=== PATIENT | male | born 1990 | race Caucasian/White ===

== ENCOUNTER 2016-07-23 01:21 | Emergency (ER) | payer OTHER ==
[~2016-07-23] VITALS: Ht 177.8 cm; Wt 74.8 kg
[2016-07-23 03:08] VITALS: BP 128/78
== END 2016-07-23 03:14 | disposition home or self-care (01) ==
LOC: ER 01:21
DX: G44.209 Tension-type headache, unspecified, not intractable (principal); F17.210 Nicotine dependence, cigarettes, uncomplicated

== ENCOUNTER 2019-09-06 21:13 | Emergency (ER) | payer OTHER ==
[~2019-09-06] VITALS: Ht 177.8 cm; Wt 86.2 kg
[2019-09-06 22:00] LABS: HEMATOCRIT 42.7 % (42.0-52.0); MCH 27.5 pg (26.0-34.0); MCHC 32.8 g/dL (28.0-37.0); MCV 83.9 fL (80.0-100.0); PLATELET COUNT 220 thou/uL (150-400); RBC 5.09 mil/uL (4.50-6.00); RDW 13.9 % (10.5-14.5); WBC 5.6 thou/uL (4.0-11.0)
[2019-09-06 22:10] LABS: CALCIUM 9.4 mg/dL (8.5-10.1); POTASSIUM 3.4 mmol/L (3.5-5.1)
[2019-09-06 22:16] LABS: ALBUMIN 4.2 g/dL (3.4-5.0); DIRECT BILIRUBIN 0.1 mg/dL (<0.1-0.2); TOTAL BILIRUBIN 0.7 mg/dL (<0.1-1.0)
[2019-09-06 22:19] LABS: ABSOLUTE NEUTROPHILS 3.2 thou/uL (1.4-8.2); PLATELET ESTIMATE NORMAL
[2019-09-07] MEDS ORDERED: CIPROFLOXACIN500 M1 PO (00:28)
[2019-09-07] MEDS ORDERED: FLAGYL500 M1 PO (00:28)
[2019-09-07] MEDS ORDERED: ZOFRAN ODT4 MG PO (00:28)
[2019-09-07 00:44] VITALS: BP 116/75
== END 2019-09-07 00:40 | disposition home or self-care (01) ==
LOC: ER 21:13
PROVIDERS: Emergency Medicine Emergency Medical Services
DX: K52.9 Noninfective gastroenteritis and colitis, unspecified (principal); K62.5 Hemorrhage of anus and rectum; F17.210 Nicotine dependence, cigarettes, uncomplicated

== ENCOUNTER 2019-09-07 23:21 | Inpatient (IN) | payer OTHER ==
[~2019-09-07] VITALS: Ht 177.8 cm; Wt 84.8 kg
[~2019-09-07 23:21] MED LIST: CIPROFLOXACIN500 M1 PO; FLAGYL500 M1 PO; ZOFRAN ODT4 MG PO
[2019-09-07 23:22] VITALS: BP 143/79
[2019-09-07 23:52] LABS: HEMATOCRIT 40.9 % (42.0-52.0); HEMOGLOBIN 13.3 gm/dL (14.0-18.0); MCH 27.1 pg (26.0-34.0); MCHC 32.5 g/dL (28.0-37.0); MCV 83.3 fL (80.0-100.0); PLATELET COUNT 210 thou/uL (150-400); RBC 4.91 mil/uL (4.50-6.00); RDW 13.9 % (10.5-14.5); WBC 5.4 thou/uL (4.0-11.0)
[2019-09-08] VITALS (7 sets, daily range): BP systolic 114–135; BP diastolic 60–87
[2019-09-08 00:01] LABS: CALCIUM 8.7 mg/dL (8.5-10.1); CREATININE 0.9 mg/dL (0.7-1.3); POTASSIUM 3.2 mmol/L (3.5-5.1)
[2019-09-08 00:13] LABS: TOTAL BILIRUBIN 0.8 mg/dL (<0.1-1.0); TOTAL PROTEIN 7.6 g/dL (6.4-8.2)
[2019-09-08 00:15] LABS: URINE BILIRUBIN NEGATIVE (Negative); URINE BLOOD 1+ (Negative); URINE CLARITY CLEAR; URINE COLOR YELLOW; URINE GLUCOSE-RANDOM* NEGATIVE (Negative); URINE KETONES 2+ (Negative); URINE LEUKOCYTES-REFLEX TRACE (Negative); URINE NITRITE-REFLEX NEGATIVE (Negative); URINE PROTEIN (DIPSTICK) TRACE (Negative); URINE SPECIFIC GRAVITY >= 1.030 (1.005-1.035); URINE UROBILINOGEN 0.2 E.U./dl (0.2-1.0)
[2019-09-08 00:21] LABS: BACTERIA-REFLEX None Seen /HPF (None Seen); CASTS None Seen /LPF (None Seen); CRYSTALS None Seen /LPF (None Seen); MUCUS 4-6 Moderate strn/LPF (None Seen); SQUAMOUS None Seen /LPF (0-3); URINE RBC 0-2 Rare /HPF (0-2); URINE WBC-REFLEX None Seen /HPF (0-5)
[2019-09-08 00:42] LABS: ATYPICAL LYMPHS 13 %
[2019-09-08 00:43] LABS: LARGE PLATELETS FEW
[2019-09-08 18:50] LABS: HEMATOCRIT 40.3 % (42.0-52.0); HEMOGLOBIN 13.1 gm/dL (14.0-18.0)
[2019-09-09 04:32] VITALS: BP 146/71
[2019-09-09 04:50] LABS: CREATININE 0.9 mg/dL (0.7-1.3); POTASSIUM 3.5 mmol/L (3.5-5.1)
[2019-09-09 05:00] LABS: HEMATOCRIT 39.3 % (42.0-52.0); HEMOGLOBIN 12.5 gm/dL (14.0-18.0); MCHC 31.9 g/dL (28.0-37.0); MCV 84.6 fL (80.0-100.0); RBC 4.64 mil/uL (4.50-6.00); WBC 5.7 thou/uL (4.0-11.0)
[2019-09-09 07:40] VITALS: BP 116/58
[2019-09-09 08:05] VITALS: BP 116/58
[2019-09-09 12:55] VITALS: BP 116/58
--- NOTE | 2019-09-09 14:59 | P ---
[facility] [place] [address] PROCEDURE REPORT Name: GASPER GRAY Room #: 209-P [facility] IN M.R.#: [id number] Admission: 09/08/19 Attend Phys: Reji Ortiz MD Discharge: Date of : 86 Report #: [id number] THIS REPORT FOR: cc: NO FAMILY PHYSICIAN or PCP NO FAMILY PHYSICIAN or PCP Jasiel Ward MD ~ CC: Reji Ortiz NO PCP INPATIENT UPPER ENDOSCOPY REPORT BRIEF HISTORY: The patient is a 29-year-old male who was admitted with rectal bleeding and evidence of colitis on CT. However, he has had increased nausea and vomiting. He also does have some peptic symptoms at home and does use Tums on a fairly regular basis. PREOPERATIVE DIAGNOSES: Dyspepsia and increasing nausea and vomiting. POSTOPERATIVE DIAGNOSIS: Mild to moderate diffuse gastritis. MEDICATIONS: Deep sedation with propofol per anesthesia. SPECIMEN: Biopsies of gastritis. ESTIMATED BLOOD LOSS: 3 mL. PROCEDURE: EGD with biopsy. FINDINGS: Prior to propofol sedation, procedure of upper endoscopy was discussed with the patient as well as potential risks and its complications. He indicates he understands and desires to proceed. DESCRIPTION OF PROCEDURE: With the patient in left lateral decubitus position, the Olympus video endoscope was inserted in the cervical esophagus under direct vision without difficulty. Examination of this organ through its entire style length revealed normal esophageal mucosa down the squamocolumnar junction. Squamocolumnar junction was inspected and noted to be unremarkable. Specifically, there is no evidence of ulcers, erosions. Hiatus hernia was not seen. The scope was advanced into the stomach, was examined on end view as well as retroflexed views. There was a pattern of diffuse gastritis with patchy erythema in the antrum and there were some linear striations in the body of the stomach. However, the mucosa was intact. No ulcers or erosions were seen. No blood was seen. Upon retroflexion, no abnormalities were seen. In addition, there were no retained solids or liquids in the stomach. The pylorus was inspected and noted to be unremarkable. The duodenal bulb was unremarkable. Postbulbar areas sweep was unremarkable. The duodenal papilla was identified and clear yellow bile was streaming from it and it was noted to be within normal [facility] [address] [place] [address] PROCEDURE REPORT Name: GASPER GRAY Room #: 209-P ADM IN .R.#: [id number] Admission: 09/08/19 Attend Phys: Reji Ortiz MD Discharge: Date of : 86 Report #: [id number] limits. At that point, scope was slowly withdrawn and careful circumferential views confirmed the above findings. The patient tolerated the procedure well. Biopsies obtained of the gastritis. DISPOSITION: The patient with colitis, but he also has nausea and vomiting and he has had peptic symptoms. We will follow up on biopsies, which were obtained today. Some of his symptoms may be related to his acute colitis. However, he is on metronidazole, which may be contributing to the vomiting symptoms. If he continues to have difficulty, change in antibiotics may be indicated. Also, he is on a PPI. We will switch him from IV to oral. <ELECTRONICALLY SIGNED> By: Jasiel Ward MD 09/09/19 1459 1221 1310 Jasiel Ward MD /nt
[2019-09-09 15:55] VITALS: BP 102/80
[2019-09-09 20:25] VITALS: BP 115/68
[2019-09-10 05:00] VITALS: BP 112/73
[2019-09-10 06:13] LABS: HEMATOCRIT 39.3 % (42.0-52.0); HEMOGLOBIN 12.8 gm/dL (14.0-18.0); MCH 27.3 pg (26.0-34.0); MCHC 32.5 g/dL (28.0-37.0); RBC 4.68 mil/uL (4.50-6.00); RDW 13.6 % (10.5-14.5); WBC 6.6 thou/uL (4.0-11.0)
[2019-09-10 07:30] VITALS: BP 123/65
[2019-09-10 11:30] VITALS: BP 1148/70
[2019-09-10 16:00] VITALS: BP 117/58
[2019-09-10 19:57] VITALS: BP 124/67
[2019-09-11 04:00] VITALS: BP 106/50
[2019-09-11 05:28] LABS: HEMATOCRIT 39.4 % (42.0-52.0); MCH 27.6 pg (26.0-34.0); MCHC 32.9 g/dL (28.0-37.0); MCV 83.8 fL (80.0-100.0); RBC 4.7 mil/uL (4.50-6.00); RDW 13.7 % (10.5-14.5); WBC 7.2 thou/uL (4.0-11.0)
[2019-09-11 05:34] LABS: CALCIUM 8.1 mg/dL (8.5-10.1); CREATININE 0.9 mg/dL (0.7-1.3); POTASSIUM 3.3 mmol/L (3.5-5.1)
[2019-09-11 07:00] VITALS: BP 105/63
--- NOTE | 2019-09-11 10:07 | PATH ---
[facility] [address] [place] [address] PATHOLOGY RPT PROCEDURE Name: MAGNO MUELLERINALD Room #: 209-P ADM IN M.R.#: [id number] Admission: 09/08/19 Date of : 86 Discharge: Report #: [id number] Path Case #: [id number] [facility] Accession Number: [id number] . 01 Material submitted: . stomach - BX GASTRITIS . 01 Clinical history: . Pre-op diagnosis: Nausea, vomiting, abdominal pain Post-op diagnosis: Gastritis R/O H. pylori . 02 Diagnosis: Gastric mucosa, gastritis rule out H. pylori, endoscopic biopsy: - Mild chronic focal active gastritis. - Negative for intestinal metaplasia or atrophy. - Negative for Helicobacter pylori (properly controlled immunohistochemical stain performed). (IUV/db; 09/10/2019) LBQ 09/10/2019 1252 Local . 02 Electronically signed: . Shaina U Vadlamani, MD, Pathologist NPI- [id number] . 01 Gross description: . The specimen is received in formalin, labeled "Gasper Muellre, biopsy gastritis". Received are six segments of pale an soft tissue ranging in size from 0.2 to 0.5 cm in maximum dimensions. The specimen is submitted entirely in cassette A1. (CAA; 09/09/2019) QAC/QAC 09/09/2019 1809 Local . 02 Pathologist provided ICD-10: K29.50 . 02 CPT . 667985, T65467 Specimen Comment: A courtesy copy of this report has been sent to [phone] Specimen Comment: [id number] Specimen Comment: Report sent to / DR CAVANAUGH Specimen Comment: A duplicate report has been generated due to demographic updates. Performed at: [address] [place] [id number] [id number] [place] [address] [facility] [place] [address] PATHOLOGY RPT PROCEDURE Name: GASPER MUELLER Room #: 209-P [facility] IN M.R.#: [id number] Admission: 09/08/19 Date of : 86 Discharge: Report #: [id number] Path Case #: [id number] MD Joes Alvarado MD Phone: [phone] Performed at: [address] [place] [address] [employer] [employer] [place], [place] [id number] MD Shaina Sherman MD Phone: [phone]
[2019-09-11 11:30] VITALS: BP 117/76
[2019-09-11 16:30] VITALS: BP 121/68
[2019-09-11 20:10] VITALS: BP 109/47; BP 121/76
--- NOTE | 2019-09-11 22:12 | P ---
[facility] [place] [address] PROCEDURE REPORT Name: GASPER GRAY Room #: 209-P ADM IN M.R.#: [id number] Admission: 09/08/19 Attend Phys: Reji Ortiz MD Discharge: Date of : 86 Report #: [id number] THIS REPORT FOR: cc: NO FAMILY PHYSICIAN or PCP NO FAMILY PHYSICIAN or PCP Virginia Gautam DO ~ CC: Reji Ortiz MD NO PCP DATE OF SERVICE: 09/11/2019 PROCEDURE: Extended flexible sigmoidoscopy with biopsies. He is a patient of Dr. Reji Ortiz. INDICATION FOR PROCEDURE: The patient has been having melena and hematochezia of undetermined etiology. He has left lower quadrant pain. He has been anorectic for the past week. Stools for C. diff and enteric pathogens have been negative. Colonoscopy is being performed as CT scan of the abdomen and pelvis shows pancolonic wall thickening of undetermined etiology. Informed consent for this procedure was obtained prior to the administration of any medication. The risks of the procedure, which include bleeding, perforation, infection, complications of sedation, and the possibility I could miss something were explained to the patient. It is also explained that these are not all of the risks involved in an endoscopy of any kind. He has indicated his consent by signing. Anesthesia kindly provided deep sedation for this procedure. DESCRIPTION OF PROCEDURE: With the patient in the left lateral decubitus position, a digital rectal exam was performed and no abnormalities were palpated. He does have an external hemorrhoid, which could be the source of some hematochezia. Then, the Olympus colonoscope was introduced through the anal sphincter and advanced under direct visualization to the splenic flexure. The patient has left-sided moderately severe colitis. It was thought that extending this test further to include the terminal ileum and excluding Crohn's disease would be a reasonable alternative to the flexible sigmoidoscopy and therefore we pressed on to the terminal ileum, which was normal, excluding Crohn's disease essentially in most situations. The cecum, ascending colon, hepatic flexure, transverse colon, splenic flexure, descending colon, sigmoid colon, and rectum are all moderately inflamed with pancolitis. The etiology is [address] [address] PROCEDURE REPORT Name: GASPER GRAY Room #: 209-P [facility] IN [facility].#: [id number] Admission: 09/08/19 Attend Phys: Reji Ortiz MD Discharge: Date of : 86 Report #: [id number] unclear. It could be ulcerative colitis, although I did not see ulcers. This appears to be an acute colitis. It does not involve only one blood vessel, so I do not think it is ischemia, and based on his age, I doubt he would have that anyway, so it is probably an inflammatory bowel disease. Retroflexed view in the rectum did not reveal any further abnormalities. Biopsies were obtained randomly times 10 throughout the entire colon for histopathology. The scope was withdrawn. The patient went to the recovery area in stable condition. He tolerated the procedure well. IMPRESSION: 1. Moderately severe pancolitis, probably inflammatory such as ulcerative colitis. 2. External hemorrhoid. RECOMMENDATIONS: We will start him on a 5-ASA product such as Asacol or one of the other available 5-ASA products, also start him on Solu-Medrol 125 mg IV push now times 1 and then 62.5 mg IV push q. 12 hours times 24 hours and then prednisone 40 mg p.o. q. day for 2 weeks will be started. After that, we would decrease the dose by 5 mg of prednisone every week until the patient is off the prednisone altogether. He should continue taking the 5-ASA product during this interval. He will follow up with Dr. Jasiel Ward in the office after discharge. He will be on a soft diet for now and we will be checking his CBC in the morning. We will await the biopsies from his colon. Thank you very much once again for allowing me to participate in his care. <ELECTRONICALLY SIGNED> By: Virginia Gautam DO 09/11/19 2212 1440 1532 Virginia Gautam DO /nt
[2019-09-12 00:10] VITALS: BP 137/81
[2019-09-12 04:45] VITALS: BP 118/69
[2019-09-12 08:38] VITALS: BP 127/83
[2019-09-12 09:44] LABS: ABSOLUTE NEUTROPHILS 7.2 thou/uL (1.4-8.2); BASOPHILS 0.1 % (0.0-2.0); HEMATOCRIT 41.1 % (42.0-52.0); HEMOGLOBIN 13.7 gm/dL (14.0-18.0); MCH 27.5 pg (26.0-34.0); MCHC 33.3 g/dL (28.0-37.0); MCV 82.8 fL (80.0-100.0); MONOCYTES 3.1 % (1.0-8.0); PLATELET COUNT 230 thou/uL (150-400); POLYS 90.8 % (36.0-66.0); RBC 4.97 mil/uL (4.50-6.00); RDW 13.8 % (10.5-14.5)
[2019-09-12 12:38] VITALS: BP 118/77
[2019-09-12] MEDS ORDERED: CIPROFLOXACIN500 M1 PO (14:53)
[2019-09-12] MEDS ORDERED: FLAGYL500 M1 PO (15:06)
[2019-09-12] MEDS ORDERED: DELZICOL400 M1 PO (15:07)
[2019-09-12] MEDS ORDERED: LIDOCAINE35.44 GM TOP (15:16)
[2019-09-12 17:13] VITALS: BP 118/80
[2019-09-12 17:17] VITALS: BP 118/77
[2019-09-12] MEDS ORDERED: PREDNISONE 10 M10 M1 PO (18:39)
--- NOTE | 2019-09-15 16:07 | PATH ---
[facility] [address] [place] [address] PATHOLOGY RPT PROCEDURE Name: ABBY MUELLERD Room #: 209-P [facility] IN M.R.#: [id number] Admission: 09/08/19 Date of : 86 Discharge: 09/12/19 Report #: [id number] Path Case #: [id number] [facility] Accession Number: [id number] . 01 Material submitted: . colon - RANDOM BIOPSY OF COLON R/O COLITIS . 01 Clinical history: . Nausea, vomiting, abdominal pain. . 02 Diagnosis: Large intestine mucosa, colon R/O colitis, endoscopic biopsy: - Moderate to marked active colitis. - Negative for dysplasia or malignancy. (IUV:vinh; 09/15/2019) QMS 09/15/2019 1339 Local . 02 Comment: Examination shows a markedly expanded lamina propria along with surface epithelial inflammation, as well as multiple crypt abscesses. Rare crypt architectural abnormalities are identified as well. Viral inclusions, or granulomata are not identified. Subtle basal plasmacytosis is noted in scattered foci. Overall findings are are suggestive of moderate to marked active colitis involving all fragments with a similar intensity. The differential diagnosis includes active inflammatory bowel disease, infectious-type of colitis, acute diverticulitis, as well as medication/drug induced colitis. Clinical correlation is required. There is no dysplasia or malignancy present. (IUV:vinh; 09/15/2019) . 02 Electronically signed: . Shaina Sherman MD, Pathologist NPI- [id number] . 01 Gross description: . Received in formalin labeled "Gasper Mueller, random BX of colon r/o U. Colitis" is a 1.6 x 1.0 x 0.1 cm aggregate of an-brown soft tissue fragments. The specimen is submitted entirely in A1. ([facility] [place] [place]; 09/12/2019) [facility] 09/12/2019 1010 Local . 02 Pathologist provided ICD-10: K52.9 . 02 CPT . 195141 Specimen Comment: A courtesy copy of this report has been sent to [phone] [address] PATHOLOGY RPT PROCEDURE Name: ABBY MUELLERD Room #: 209-P [facility] IN M.R.#: [id number] Admission: 09/08/19 Date of : 86 Discharge: 09/12/19 Report #: [id number] Path Case #: [id number] Specimen Comment: [phone] Specimen Comment: Report sent to / DR ROBERTS Performed at: [address], [place], [place] [id number] MD Jose Alvarado MD Phone: [phone] Performed at: [address] [id number] MD Shaina Sherman MD Phone: [phone]
== END 2019-09-12 18:45 | disposition home or self-care (01) | DRG 385 ==
LOC: ER 23:21 → EROBS 09-08 01:03 → 2N 09-08 01:03
PROVIDERS: Emergency Medicine Emergency Medical Services; Nurse Practitioner Family; Specialist; ADMIT Hospitalist
PROC: 0DB68ZX Excision of Stomach, Via Natural or Artificial Opening Endoscopic, Diagnostic (ICD-10-PCS; 2019-09-08)
PROC: 0DBE8ZX Excision of Large Intestine, Via Natural or Artificial Opening Endoscopic, Diagnostic (ICD-10-PCS; 2019-09-09)
PROC: 0DDN8ZX Extraction of Sigmoid Colon, Via Natural or Artificial Opening Endoscopic, Diagnostic (ICD-10-PCS; principal; 2019-09-11)
DX: K51.011 Ulcerative (chronic) pancolitis with rectal bleeding (principal); K29.71 Gastritis, unspecified, with bleeding; K64.4 Residual hemorrhoidal skin tags; K21.9 Gastro-esophageal reflux disease without esophagitis; Z79.899 Other long term (current) drug therapy; Z87.891 Personal history of nicotine dependence
CPT/HCPCS: 10081; 62110; 62900; 70005

== ENCOUNTER 2021-05-28 22:11 | Emergency (ER) | payer OTHER ==
[~2021-05-28] VITALS: Ht 180.3 cm; Wt 90.7 kg
[~2021-05-28 22:11] MED LIST changes: +DELZICOL400 M1 PO; +LIDOCAINE35.44 GM TOP; +PREDNISONE 10 M10 M1 PO
[2021-05-28] MEDS ORDERED: FLEXERIL PO (23:06)
[2021-05-28 23:09] VITALS: BP 111/51
== END 2021-05-28 23:15 | disposition home or self-care (01) ==
LOC: ER 22:11
DX: S60.410A Abrasion of right index finger, initial encounter (principal); F12.90 Cannabis use, unspecified, uncomplicated; F17.210 Nicotine dependence, cigarettes, uncomplicated; J45.909 Unspecified asthma, uncomplicated; Z98.890 Other specified postprocedural states; Z79.899 Other long term (current) drug therapy; V49.88XA Car occupant (driver) (passenger) injured in other specified transport accidents, initial encounter; Y93.89 Activity, other specified; Y92.413 State road as the place of occurrence of the external cause; Y99.9 Unspecified external cause status